=== PATIENT | female | born 1980 | race Caucasian/White ===

== ENCOUNTER → 2021-09-26 | Outpatient (CLI) | payer OTHER ==
[~2021-09-26] MED LIST: BAYER CHEWABLE81 MG PO; CYMBALTA 30 MG30 MG PO; DOCUSATE SODIU250 MG PO; HYDROCHLOROTHIA25 MG PO; HYDROCODONE-AC1 EACH PO; IBUPROFEN600 MG PO; LEVOTHYROXINE150 MC1 PO; LIPITOR TAB 1010 MG PO; MUCINEX1200 MG PO; NORVASC2.5 MG PO; OMEPRAZOLE20 MG PO; VALSARTAN160 MG PO; XYZAL5 MG PO
[2021-09-26 13:26] LABS: HEMOGLOBIN 15.8 gm/dl (12.3-15.3); RED BLOOD COUNT 5.18 M/UL (4.00-5.10); WHITE BLOOD COUNT 11.7 K/UL (4.5-11.0)
[2021-09-26 14:28] LABS: BUN/CREATININE RATIO 13 (0-10)
== END ==
LOC: OPSV2 12:30
PROVIDERS: Obstetrics & Gynecology
DX: Z01.818 Encounter for other preprocedural examination (principal); N81.9 Female genital prolapse, unspecified; R94.31 Abnormal electrocardiogram [ECG] [EKG]
CPT/HCPCS: 80053; 81001; 85025; 93005

== ENCOUNTER 2021-09-29 07:57 | Day surgery (SDC) | payer OTHER ==
[~2021-09-29] VITALS: Ht 167.6 cm; Wt 84.4 kg
[~2021-09-29 07:57] MED LIST changes: -DOCUSATE SODIU250 MG PO; -HYDROCODONE-AC1 EACH PO; -IBUPROFEN600 MG PO; -MUCINEX1200 MG PO
[2021-09-29] MEDS ORDERED: MUCINEX1200 MG PO (08:25)
[2021-09-29] MEDS ORDERED: HYDROCODONE-AC1 EACH PO (11:27)
[2021-09-29] MEDS ORDERED: IBUPROFEN600 MG PO (11:27)
[2021-09-29] MEDS ORDERED: DOCUSATE SODIU250 MG PO (11:27)
--- NOTE | 2021-09-30 14:50 | NUR ---
PER DR. COLBY: TELEPHONE CONVERSATION CONTINUE ALL HOME MEDS FOR DISCHARGE. LUDIN SHERMAN RN.
== END 2021-09-30 15:20 | disposition home or self-care (01) ==
LOC: OR 07:57 → M/S 16:20 → OR 09-30 15:20
DX: N81.6 Rectocele (principal); E03.9 Hypothyroidism, unspecified; I10 Essential (primary) hypertension; E78.5 Hyperlipidemia, unspecified; K21.9 Gastro-esophageal reflux disease without esophagitis; Z88.5 Allergy status to narcotic agent; Z79.82 Long term (current) use of aspirin; Z79.899 Other long term (current) drug therapy
CPT/HCPCS: 93005; C1769; J0690; J1100; J1885; J2001; J2250; J2270; J2405; J2704; J3010; J7120